=== PATIENT | female | born 1985 | race Asian ===

== ENCOUNTER 2017-03-11 12:57 | Emergency (ER) | payer OTHER ==
[2017-03-11 13:06] VITALS: BP 118/82
--- NOTE | 2017-03-11 15:29 | Emergency Department Report ---
HPI - General Chief Complaint: Upper Respiratory Infection Time Seen by Provider: 03/11/17 15:28 - HPI HPI: Patient reports that she has been having cough for 2 weeks. She states that she has white and yellow sputum. She states that she is having in pain in the back and chest with coughing. Pain only related to coughing. She denies any pain at present. She finished she is using [employer] Mucinex. She reports is not helping. Denies any difficulty breathing. Reports that she is having some sore throat but only with coughing. Denies any fever or chills. Patient denies any medical problems. She reports that she is having sinus pain and pressure .patient does not have any cardiac related problems. ED Past Medical Hx - Past Medical History Previous Medical History?: Yes Hx Hypertension: Yes Hx Asthma: Yes - Surgical History Past Surgical History?: Yes Additional Surgical History: C/S - Family History Family history: hypertension - Social History Smoking Status: Never Smoker Substance Use Type: Alcohol - Medications Home Medications: Home Medications Medication Instructions Recorded Confirmed Last Taken Type Hydrocortisone 2.5% [Hytone 2.5% 1 applicatio TP Q8H PRN #1 tube 04/07/14 Unknown Rx CREAM] Prednisone [Prednisone 10 mg 10 mg PO .TAPER #1 tab.ds.pk 04/07/14 Unknown Rx (6-Day Pack, 21 Tabs)] Amoxicillin/K Clav Tab [Augmentin 1 tab PO Q12HR 10 Days #20 tab 03/11/17 Unknown Rx 875 mg] Cetirizine HCl [ZyrTEC] 10 mg PO QAM 14 Days #14 capsule 03/11/17 Unknown Rx Fluticasone [Flonase] 1 spray NS QDAY 14 Days #1 bottle 03/11/17 Unknown Rx guaiFENesin/CODEINE [Robitussin AC] 10 ml PO QHS PRN 7 Days #70 03/11/17 Unknown Rx oral.liqd ED Review of Systems ROS: Stated complaint: CHEST PAIN Other details as noted in HPI Comment: All other systems reviewed and negative Constitutional: no symptoms reported Eyes: denies: eye pain, eye discharge ENT: congestion, other (reports clogged ear sensation). denies: ear pain, throat pain Respiratory: cough. denies: orthopnea, shortness of breath, SOB with exertion, SOB at rest, stridor, wheezing Cardiovascular: chest pain (chest pain is related to coughing and she is not experiencing any chest pain at present.). denies: palpitations, dyspnea on exertion, edema, syncope, paroxysmal nocturnal dyspnea Gastrointestinal: denies: abdominal pain, nausea, vomiting, diarrhea, constipation Musculoskeletal: back pain (only with coughing and none at present.). denies: arthralgia, myalgia Skin: denies: rash Neurological: denies: headache, weakness, numbness, paresthesias, confusion, abnormal gait, vertigo Physical Exam - Physical Exam Vital Signs: Vital Signs 03/11/17 13:04 Temperature 98.9 F Pulse Rate 105 H Respiratory 16 Rate Blood Pressure 118/82 O2 Sat by Pulse 100 Oximetry Vital Signs 03/11/17 03/11/17 13:04 16:35 Temperature 98.9 F Pulse Rate 105 H 92 H Respiratory 16 Rate Blood Pressure 118/82 O2 Sat by Pulse 100 Oximetry General: This is a 32-year-old female well-nourished well-developed in no acute distress Physical Exam: Head: Normocephalic, atraumatic, no abrasion, no bruising and no contusion. Eyes: Biateral pupils equal and reactive to light, bilateral EOM intact.. Bilateral conjunctival and sclera without injection, normal accommodation. No nystagmus Ears: Bilateral TMs congested without erythema. No EAC redness ,swelling or drainage. Nose: Nasal mucosa congested with erythema and clear drainage. Maxillary and frontal sinuses tender to palpate. Neck: Supple, No Cervical adenopathy, full range of motion and no C-spine tenderness. Cardiovascular: S1, S2. Regular rate and rhythm. No murmur. Capillary refill is less then 3 seconds. Lungs: Clear to auscultate bilaterally. No rhonchi, wheezes or rales. No chest wall tenderness. Dry cough MSK: Strength 5/5 in all extremities. No joint deformity or crepitus. Normal inspection. Full range of motion to all extremities. No laceration, abrasion or ecchymotic area noted. Patient able to fully flex and extend bilateral knees without any difficulties. Bilateral knees nontender to palpate. Abdomen: Non-tender to palpate in all quadrants, no guarding or rebound tenderness, positive bowel sounds in all quadrants. No CVA tenderness. No hernia, bruit or mass. No rigidity or distention. Extremities: No clubbing, cyanosis or edema. +2 pulses. No neurovascular compromise Skin: Clean, dry and intact. No rash or lesions. Neurological: GCS at 15, Pt is alert and oriented 3 speech is clear period. 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 Normal gait. Negative Romberg and no pronator drift. Normal Reflexes. No motor or sensory deficit Back: No vertebral tenderness, no paraspinal tenderness. The bend over and touch his toes without any difficulties. Ambulates without any difficulties. Psych: Normal mood and behavior ED Course Vital Signs 03/11/17 13:04 Temperature 98.9 F Pulse Rate 105 H Respiratory 16 Rate Blood Pressure 118/82 O2 Sat by Pulse 100 Oximetry - Reevaluation(s) Reevaluation #1: 03/11/17 16:52 Patient is stable throughout ED stay. Patient is at low risk for cardiac disease or cardiac risk score is 0 therefore and there is no need to do cardiac workup. She is having chest tightness with coughing only and was not experiencing any chest pain or shortness of breath upon examination. ED Medical Decision Making - Lab Data Lab Results 03/11/17 Range/Units 13:58 HCG, Qual Negative (Negative) - Medical Decision Making ED course: Pt reports that she is having in coughing in, runny nose and congestion over the last 2 weeks that she's been taken [id number] medication does not help him. Patient reports back and chest pain with coughing. Patient does not have any cardiac related disease and her cardiac risk score is 0. No cardiac workup is necessary at this time. Physical findings for maxillary and frontal sinus tenderness with congestion and erythema and drainage to nasal mucosa and patient with dry cough. Patient has acute bacterial rhinosinusitis and nasal congestion with coughing. I discussed patient diagnosis and treatment plan and I discussed with her she needs to follow up with her primary care physician in 2 days. Patient voiced understanding of discharge instruction and treatment plan. I told her she does not have a primary care physician that she'll need to follow up at [facility] to call tomorrow to schedule an appointment. Pt discharge home with prescription for Zyrtec, Flonase, Augmentin and guaifenesin with codeine cough medicine at night. Critical care attestation.: If time is entered above; I have spent that time in minutes in the direct care of this critically ill patient, excluding procedure time. ED Disposition Clinical Impression: Acute bacterial rhinosinusitis, Cough with congestion of paranasal sinus Disposition: DC-01 TO HOME OR SELFCARE Is pt being admited?: No Does the pt Need Aspirin: No Condition: Stable Instructions: Acute Cough (ED), Acute Bacterial Rhinosinusitis (ED) Additional Instructions: Please increase her fluid intake Make an appointment to follow up with your primary care physician in 2 days and if he do not have one you can follow-up at [facility] Take medication as prescribed Please do not drive or operate heavy machinery while taking guaifenesin with codeine as this medication causes drowsiness Take antibiotic with yogurt or probiotic to prevent diarrhea Flush nostrils out with nasal saline wash and this will help to relieve nasal congestion Prescriptions: guaiFENesin/CODEINE [Robitussin AC] 10 ml PO QHS PRN 7 Days #70 oral.liqd PRN Reason: Cough Amoxicillin/K Clav Tab [Augmentin 875 mg] 1 tab PO Q12HR 10 Days #20 tab Cetirizine HCl [ZyrTEC] 10 mg PO QAM 14 Days #14 capsule Fluticasone [Flonase] 1 spray NS QDAY 14 Days #1 bottle Referrals: PRIMARY CARE, [Primary Care Provider] - 03/13/17 [facility] [Outside] - 03/13/17 Forms: Work/School Release Form(ED)
== END 2017-03-11 17:19 | disposition home or self-care (01) ==
LOC: ED 12:57
DX: J01.00 Acute maxillary sinusitis, unspecified (principal); J01.10 Acute frontal sinusitis, unspecified; I10 Essential (primary) hypertension
CPT/HCPCS: 36415; 84703; 99283